=== PATIENT | female | born 1980 | race Caucasian/White ===

== ENCOUNTER 2024-03-11 18:45 | Emergency (ER) | payer OTHER, SELFPAY ==
[2024-03-11 18:47] VITALS: BP 132/78; PULSE 66; TEMP 36.9; O2SAT 98; BMI 27.3
--- NOTE | 2024-03-11 18:57 | CT_ITS ---
[address] [address] Patient Name: RADHA RM MRN: [id number] date: 1980 Sex: F Assigned Patient Location: ER Current Patient Location: [facility] Accession/Order Number: [id number] Exam Date: 03/11/2024 19:24 Report Date: 03/11/2024 20:28 At the request of: SHYANNE BECERRA Procedure: CT cervical spine wo con EXAM: CT cervical spine wo con, CT head/brain wo con COMPARISON: None available. CLINICAL INFORMATION: Head and neck injury. TECHNIQUE: Axial noncontrast images were obtained through the brain and cervical spine with sagittal and coronal reconstructions. Dose reduction techniques were achieved by using automated exposure control and/or adjustment of mA and/or kV according to patient size and/or use of iterative reconstruction technique. FINDINGS: CT head: BRAIN: No intracranial hemorrhage. No extra-axial collection. No mass or mass effect. No midline shift. Otto-white matter differentiation is preserved. CSF: Ventricles and sulci appropriate for age. Basal cisterns are patent. ORBITS: Visualized orbital structures are unremarkable. SINUSES AND MASTOID AIR CELLS: Paranasal sinuses are clear. Mastoid air cells are clear. BONES: No acute osseous abnormality. SOFT TISSUES: Unremarkable. CT C-spine: Straightening/reversal of the normal cervical lordosis, may be positional or may suggest muscle spasm. No CT evidence of acute osseous abnormality. No prevertebral soft tissue swelling. Severe facet arthropathy on the left at C2-C3 resulting in slight degenerative grade 1 anterolisthesis of C2 on C3. Mild degenerative disc disease C4-C6. No significant spinal canal stenosis. Moderate left foraminal narrowing at C2-C3 due to facet arthropathy. No acute findings in the visualized upper chest. CT/CT cervical spine wo con IMPRESSION: 1. No evidence of acute intracranial abnormality. 2. No evidence of acute osseous abnormality of the cervical spine. 3. Degenerative changes of the cervical spine detailed above. Electronically authenticated by: BEAR BLACKMON Date: 03/11/2024 20:28
--- NOTE | 2024-03-11 18:57 | CT_ITS ---
[address] [address] Patient Name: RADHA RM MRN: [id number] date: 1980 Sex: F Assigned Patient Location: ER Current Patient Location: [facility] Accession/Order Number: [id number] Exam Date: 03/11/2024 19:24 Report Date: 03/11/2024 20:28 At the request of: SHYANNE BECERRA Procedure: CT head/brain wo con EXAM: CT cervical spine wo con, CT head/brain wo con COMPARISON: None available. CLINICAL INFORMATION: Head and neck injury. TECHNIQUE: Axial noncontrast images were obtained through the brain and cervical spine with sagittal and coronal reconstructions. Dose reduction techniques were achieved by using automated exposure control and/or adjustment of mA and/or kV according to patient size and/or use of iterative reconstruction technique. FINDINGS: CT head: BRAIN: No intracranial hemorrhage. No extra-axial collection. No mass or mass effect. No midline shift. Otto-white matter differentiation is preserved. CSF: Ventricles and sulci appropriate for age. Basal cisterns are patent. ORBITS: Visualized orbital structures are unremarkable. SINUSES AND MASTOID AIR CELLS: Paranasal sinuses are clear. Mastoid air cells are clear. BONES: No acute osseous abnormality. SOFT TISSUES: Unremarkable. CT C-spine: Straightening/reversal of the normal cervical lordosis, may be positional or may suggest muscle spasm. No CT evidence of acute osseous abnormality. No prevertebral soft tissue swelling. Severe facet arthropathy on the left at C2-C3 resulting in slight degenerative grade 1 anterolisthesis of C2 on C3. Mild degenerative disc disease C4-C6. No significant spinal canal stenosis. Moderate left foraminal narrowing at C2-C3 due to facet arthropathy. No acute findings in the visualized upper chest. CT/CT head/brain wo con IMPRESSION: 1. No evidence of acute intracranial abnormality. 2. No evidence of acute osseous abnormality of the cervical spine. 3. Degenerative changes of the cervical spine detailed above. Electronically authenticated by: BEAR BLACKMON Date: 03/11/2024 20:28
--- NOTE | 2024-03-11 18:59 | ED.NECK1 ---
HPI HPI - Neck Pain/Injury General Chief Complaint: Neck Pain/Injury Stated Complaint: NECK INJURY Time Seen by Provider: 03/11/24 18:49 Source: patient Mode of arrival: walk-in History of Present Illness HPI Narrative: Patient is a 43-year-old female who presents to the emergency department for an injury to the neck that occurred 6 days ago. Patient states she was sitting on a wooden swing in her home, the chain holding the wooden swing broke and the swing flipped, she does not know if she went backwards or forwards, she is not sure if she lost consciousness but she does believe the swing fell on her back across her shoulders. She states she had a migraine headache yesterday with an episode of vomiting but states the headache is resolved today. She has no visual changes, persistent vomiting, peripheral paresthesias. She is ambulatory. She states she has an area of bruising to her right hip but it is not bothering her. She is not concerned for and had a previous hysterectomy. Related Data Previous Rx's ?Medication ?Instructions ?Recorded methocarbamol 750 mg tablet 750 mg PO TID PRN pain #20 tabs 03/11/24 methylprednisolone 4 mg tablets in See Rx Instructions .Route 03/11/24 a dose pack (Medrol (Eren)) .COMPLEX #21 ea Allergies Allergy/AdvReac Type Severity Reaction Status Date / Time No Known Drug Allergies Allergy Verified 03/11/24 18:53 Opioid HPI Opioid Management Most Recent Opioid Data: No Data to Display Review of Systems ROS Constitutional Denies: fever or chills Eyes Denies: change in vision Ears, nose, mouth, and throat Denies: throat pain or nasal congestion Respiratory Denies: shortness of breath Gastrointestinal Reports: vomiting; Denies: abdominal pain or nausea Musculoskeletal Reports: neck pain; Denies: back pain or extremity pain Integumentary/Breast Denies: rash Neurological Reports: headache; Denies: numbness in extremities, weakness in extremities or dizziness Hematologic/Lymphatic Denies: easy bruising or easy bleeding Exam Narrative Exam Narrative: Gen.: Awake, alert, in no distress Head: Normocephalic, atraumatic ENT: Moist mucous membranes, diffuse tenderness of the paraspinal muscles of the left cervical spine with no midline posterior bony point tenderness or obvious deformity. No swelling, ecchymosis or obvious deformity of the neck or shoulders. Respiratory: No respiratory distress Extremities: Moves extremities equally, no obvious extremity injury Psych: Normal mood and affect Neuro: No focal neuro deficit Skin: Warm, dry, intact Constitutional Vital Signs, click to edit/add: Last Vital Signs Temp 98.5 F 03/11/24 18:47 Pulse 66 03/11/24 18:47 Resp 16 03/11/24 18:47 BP 132/78 03/11/24 18:47 Pulse Ox 98 03/11/24 18:47 O2 Del Method Room Air 03/11/24 18:47 Course Vital Signs Vital signs: Vital Signs Temperature 98.5 F 03/11/24 18:47 Pulse Rate 66 03/11/24 18:47 Respiratory Rate 16 03/11/24 18:47 Blood Pressure 132/78 03/11/24 18:47 Pulse Oximetry 98 03/11/24 18:47 Oxygen Delivery Method Room Air 03/11/24 18:47 Temperature 98.5 F 03/11/24 18:47 Pulse Rate 66 03/11/24 18:47 Respiratory Rate 16 03/11/24 18:47 Blood Pressure 132/78 03/11/24 18:47 Pulse Oximetry 98 03/11/24 18:47 Oxygen Delivery Method Room Air 03/11/24 18:47 MDM - Neck Pain/Injury MDM Narrative Medical decision making narrative: Patient sent for CT of the head and C-spine. The studies show no evidence of acute process, there are degenerative changes in the cervical spine which may be contributing to her symptoms. She is neurovascularly intact in the ER with stable vital signs. Reevaluated by attending physician prior to discharge. She is sent home to use ice applied to her neck as well as Medrol Dosepak and muscle relaxants. Return to the ER if symptoms change or worsen. Rest, ice, gentle stretching. Follow-up PCP SHARED APC VISIT, PHYSICIAN ATTESTATION: [id number] I performed a substantive part of the MDM during the patient?s E/M visit. I personally evaluated and examined the patient. I personally made or approved the documented management plan and acknowledge its risk of complications. Medical Records Attestation: I reviewed the patient's medical records. Imaging Data CT scan - head: Attestation: I have reviewed the pertinent imaging results. Radiologist's impression: ITS Impressions Cervical Spine CT 03/11/24 18:57 IMPRESSION: 1. No evidence of acute intracranial abnormality. 2. No evidence of acute osseous abnormality of the cervical spine. 3. Degenerative changes of the cervical spine detailed above. Electronically authenticated by: BEAR BLACKMON Date: 03/11/2024 20:[address] 03/11/24 18:57 IMPRESSION: 1. No evidence of acute intracranial abnormality. 2. No evidence of acute osseous abnormality of the cervical spine. 3. Degenerative changes of the cervical spine detailed above. Electronically authenticated by: BEAR BLACKMON Date: 03/11/2024 20:28 Discharge Plan Discharge Stand Alone Forms: Portal Instructions Chief Complaint: Neck Pain/Injury Clinical Impression: Cervical sprain Patient Disposition: Home, Self-Care Time of Disposition Decision: 20:32 Condition: Good Prescriptions / Home Meds: New methocarbamol 750 mg tablet 750 mg PO TID PRN (Reason: pain) Qty: 20 0RF methylprednisolone [Medrol (Eren)] 4 mg tablets,dose pack See Rx Instructions .ROUTE .COMPLEX Qty: 21 0RF Rx Instructions: Taper as directed Print Language: Croatian Instructions: Cervical Sprain (ED) Referrals: Physician,Non-Staff, MD [Physician] - 1 week
[2024-03-11] MEDS: METHYLPREDNISOLONE SOD SUCC PF 125 MG/2 ML VIAL IM (19:37)
[2024-03-11 20:41] VITALS: BP 100/73; PULSE 64; O2SAT 100
== END 2024-03-11 20:43 | disposition home or self-care (01) ==
PROVIDERS: Emergency Provider Emergency Medicine; PCP Family Medicine
DX: S13.9XXA Sprain of joints and ligaments of unspecified parts of neck, initial encounter (principal); W19.XXXA Unspecified fall, initial encounter; Z90.710 Acquired absence of both cervix and uterus
CPT/HCPCS: 70450; 72125; 96372; 99285; J2919